=== PATIENT | female | born 1985 | race Caucasian/White ===

== ENCOUNTER 2023-05-31 14:20 | Emergency (ER) | payer OTHER, SELFPAY ==
--- NOTE | 2023-05-31 14:22 | ED.GENADULT ---
HPI - General Adult General Chief complaint: Nausea/Vomiting/Diarrhea Stated complaint: Food Poisonings, 32 weeks Time Seen by Provider: 05/31/23 14:43 Source: patient Mode of arrival: ambulatory History of Present Illness HPI narrative: 37-year-old female who is currently 23 weeks , has gestational diabetes and states that last night she cooked a steak that was discounted from [employer], she reports that she cooked it well done but then in the middle the night both she and her developed multiple episodes of nausea and vomiting, she denies any abdominal or pelvic pain, denies any contractions/cramping, denies any vaginal bleeding or loss of fluid and states that she continues to feel the baby move. 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 Related Data Allergies Allergy/AdvReac Type Severity Reaction Status Date / Time No Known Allergies Allergy Verified 05/31/23 14:23 [No Known Allergies*] Review of Systems Review of Systems: Pertinent positives and negatives as stated in HPI PMFSH Past Medical History Source: nursing notes reviewed Social History Social History Advance Directives: No Physical Exam ED Vital Signs: Vital Signs - 24 hr 05/31/23 14:23 Temperature 96 F L Pulse Rate 140 H Respiratory Rate 20 Blood Pressure 138/94 H Pulse Oximetry 100 Oxygen Delivery Method Room Air BMI result Body Mass Index 43.8 VITAL SIGNS: Reviewed. GENERAL: Well developed, well nourished, in no acute distress. HEAD: Normocephalic/atraumatic EYES: PERRLA, EOMI EARS: Ext canals without abnormality NOSE: Nares patent bilateral OROPHARYNX: no oral lesions noted, posterior pharynx clear NECK: Supple, no adenopathy LUNGS: Normal breath sounds. No adventitious sounds or accessory muscle use. SpO2<100> CARDIOVASCULAR: Regular rate and rhythm without noted murmurs ABDOMEN: Soft, non-tender, non-distended with bowel sounds. MUSCULOSKELETAL: No tenderness, deformities, or effusions noted on gross inspection. EXTREMITIES: No cyanosis, clubbing or edema. SKIN: Inspection of the skin reveals no rashes NEUROLOGIC: Alert and oriented x 4. Strength and sensation to light touch were grossly intact x 4. Course Course Course Narrative: This is a rapid medical exam: Additional HPI, ROS, PE not included below will be deferred to primary provider. Patient is a 37-year-old female LISETTE [birth year] presenting to the emergency department with complaint of nausea and vomiting since 3am. Denies diarrhea. with similar sxs. Took zofran tablet at 1am, but vomited it. Sees Scooter Atkinson, [employer] [facility], delivering at [facility]. Reports gestational diabetes. Reports + movement. Plan: EKG, labs Medications Administered Generic Name Dose Route Start Last Admin Trade Name Freq PRN Reason Stop Dose Admin Sodium Chloride 1,000 mls @ 999 mls/hr 05/31/23 15:45 05/31/23 15:49 Ns IV 05/31/23 16:45 999 mls/hr .Q1H1M JOHN Administration Discontinued Medications Generic Name Dose Route Start Last Admin Trade Name Freq PRN Reason Stop Dose Admin Sodium Chloride 1,000 mls @ 999 mls/hr 05/31/23 15:00 05/31/23 15:48 Ns IV 05/31/23 16:00 999 mls/hr .Q1H1M JOHN Administration Ondansetron HCl 4 mg 05/31/23 14:53 05/31/23 15:49 Ondansetron Hcl 4 Mg/2 Ml Vial IVPUSH 05/31/23 14:54 4 mg ONCE ONE Administration Medical Decision Making Medical Decision Making [facility] Narrative: 37-year-old female with history and clinical presentation, DDX: Viral gastroenteritis, food poisoning, lower clinical suspicion for urinary tract infection, patient is afebrile and has no abdominal pelvic pain, denies any shortness of breath or chest pain and has no feelings of dizziness. INTERVENTION: IV fluid bolus, Zofran Signed out to Dr Mckeon - Viral testing - Labs Differential Diagnosis Differential Diagnoses: The differential diagnosis associated with the presentation includes Please see the discussion above Admission/Observation Consideration of admission/observation: Escalation of care including admission/observation considered Please see the discussion above Lab Data [facility] Lab Attestation statement: I reviewed the patient's lab results. Please see the discussion above Independent Interpretation I performed an independent interpretation of an: EKG Interpretation: Sinus tachycardia, HR-110, no STEMI, UT/QRS/QTC is within normal limits. Discharge Plan Discharge Clinical Impression: Nausea & vomiting, Currently , Dehydration Patient Disposition: Still a Patient
[2023-05-31 14:23] VITALS: BP 138/94; PULSE 140; RESP 20; TEMP 35.5; O2SAT 100; BMI 43.8
--- NOTE | 2023-05-31 14:32 | ECG_ITS ---
Test Reason : TACARDYA Blood Pressure : / mmHG Vent. Rate : 110 BPM Atrial Rate : 110 BPM P-R Int : 122 ms QRS Dur : 080 ms QT Int : 334 ms P-R-T Axes : 025 013 000 degrees QTc Int : 452 ms Sinus tachycardia Otherwise normal ECG No previous ECGs available Referred By: Kate Mcbride Electronically Signed By:DANAY NAVARRO MD
[2023-05-31] MEDS: 0.9 % Sodium Chloride 1,000 ML 999 ML IV ×2 (15:48→15:49)
[2023-05-31] MEDS: ondansetron HCL 4 MG/2 ML VIAL IVPUSH (15:49)
[2023-05-31 16:00] VITALS: BP 122/64; PULSE 108; RESP 16; O2SAT 100
[2023-05-31 16:04] LABS: Appearance Urine Clear; Color Urine Yellow; Glucose Urine UA Negative (Negative); Leukocyte Esterase Urine Negative (Negative); Nitrite Urine Negative (Negative); Specific Gravity - Urine 1.025 (1.005-1.025); UMIC TRIGGER UACC YES; Urine Blood Negative (Negative); Urine Ketones >=160 mg/dL (Negative); Urine Protein 30 (1+) mg/dL (Neg-Trace)
[2023-05-31 16:14] LABS: Bacteria Urine 1+ (None Seen); Hyaline Casts Urine 0-2 /LPF (0-2); RBC Urine 0-2 /HPF (0-2); WBC Urine 0-5 /HPF (0-5)
[2023-05-31 16:18] LABS: Basophils Percent Auto 0.1 % (0-2); Eosinophils Percent Auto 0.1 % (0-4); Hemoglobin 11.3 g/dl (12.0-16.0); Imm Gran Abs Auto 0.08 X10*3/uL (0.00-0.03); Imm Gran Pct Auto 0.5 % (0.0-0.4); Lymphocytes Absolute Auto 0.5 X10*3/uL (1.2-4.9); Lymphocytes Percent Auto 2.8 % (20-40); MANUAL DIFF FLAG SCAN; Mean Corpuscular HGB Conc 34.2 g/dl (31.0-35.0); Mean Corpuscular Hemoglobin 27.8 pg (27.0-33.0); Mean Corpuscular Volume 81.3 fL (80.0-98.0); Mean Platelet Volume 8.8 fL (9.4-12.3); Monocytes Absolute Auto 0.4 X10*3/uL (0.1-1.2); Monocytes Percent Auto 2.2 % (2-11); Neutrophils Percent Auto 94.3 % (45-73); Platelet Count 345 X10*3/uL (160-400); Red Blood Count 4.06 X10*6/uL (4.20-5.50); Red Cell Distribution Width 13.6 % (11.0-16.0); SCAN SMEAR FLAG 1; White Blood Count 16.9 X10*3/uL (4.8-10.8)
[2023-05-31 16:22] LABS: Alanine Aminotransferase 10 U/L (0-31); Albumin Level 3.6 g/dL (3.5-5.0); Alkaline Phosphatase 95 U/L (39-117); Anion Gap 13 (12-20); Aspartate Amino Transferase 11 U/L (5-31); Bilirubin Total 0.3 mg/dL (0.0-1.0); Blood Urea Nitrogen 10 mg/dL (9-16); Calcium 8.9 mg/dL (8.4-10.2); Carbon Dioxide 20 mmol/L (22-29); Chloride 109 mmol/L (96-108); Creatinine Clr Calc Pharmacy 166.1; Estimated Glomerular Filt Rate > 60; Glucose Random 127 mg/dL (60-115); Potassium 4.2 mmol/L (3.3-5.1); Sodium 138 mmol/L (135-145); Total Protein 7.1 g/dL (6.5-8.0)
[2023-05-31 16:35] LABS: SLIDE REVIEW VERIFIED
[2023-05-31 16:46] LABS: Influenza A PCR NEGATIVE (Negative); Influenza B PCR NEGATIVE (Negative); Resp Syncy Virus RNA Qual PCR NEGATIVE (Negative); SARS COV2 PCR INHOUSE NEGATIVE (Negative)
--- NOTE | 2023-05-31 17:27 | MHC.EDTECH ---
Ekg done, but didn't cross over.
[2023-05-31 18:00] VITALS: BP 118/65; PULSE 114; RESP 22; TEMP 37.6; O2SAT 98
--- NOTE | 2023-05-31 20:09 | PC.NURSE ---
this rn assumed care of pt @ 1900. pt calm and cooperative. pt ambulatory at discharge. iv removed at discharge pt provided with discharge packet. pt verbalized understanding of discharge plan
== END 2023-05-31 20:13 | disposition home or self-care (01) ==
PROVIDERS: Registered Nurse Emergency; Student in an Organized Health Care Education/Training Program; Emergency Provider Emergency Medicine Emergency Medical Services; PCP Family Medicine
DX: O26.892 Other specified pregnancy related conditions, second trimester (principal); E86.0 Dehydration; R11.2 Nausea with vomiting, unspecified; Z3A.23 23 weeks gestation of pregnancy; Z03.818 Encounter for observation for suspected exposure to other biological agents ruled out
CPT/HCPCS: 0241U; 36415; 80053; 81001; 84702; 85025; 93005; 96361; 96365; 99284; 99285; J2405; J2550

== ENCOUNTER → 2023-05-31 14:32 | Outpatient (BNV) | payer OTHER, SELFPAY | PROVIDERS: Emergency Provider Emergency Medicine Emergency Medical Services; PCP Family Medicine; Visit Provider Internal Medicine Cardiovascular Disease | DX: R00.0 Tachycardia, unspecified (principal) | CPT/HCPCS: 93010 ==